=== PATIENT | female | born 1945 | race Caucasian/White ===

== ENCOUNTER 2016-10-31 20:40 | Inpatient (IN) | payer MEDICARE, OTHER ==
[~2016-10-31] VITALS: Ht 157.5 cm; Wt 54.8 kg
[2016-10-31] MEDS ORDERED: SODIUM CHLORIDE 0.9% 1,000 ML IV ONE ×2 (22:55→23:15)
[2016-10-31] MEDS ORDERED: methylPREDNISolone SOD SUCC 125 MG/2 ML VL IV ONE (23:00)
[2016-10-31] MEDS ORDERED: ALBUTEROL SULF 2.5 MG/0.5ML(0.5%) NEB SOLN NEB ONE (23:00)
[2016-10-31] MEDS ORDERED: IPRATROPIUM BROM 0.5 MG/2.5ML INH SOL NEB ONE (23:00)
[2016-10-31 23:28] LABS: Basophils # (auto) 0.2 uL; Basophils % (auto) 1.7 % (0.0-2.0); DEFINITIVE VIEW TRANSMISSION; Eosinophils # (auto) 0 uL; Eosinophils % (auto) 0.2 % (0.0-7.0); Hematocrit 41.1 % (36.0-46.0); Hemoglobin 12.9 g/dL (12.2-16.2); Lymphocytes # (auto) 0.4 uL; Lymphocytes % (auto) 3.5 % (10.0-50.0); Mean Corpuscular Hemoglobin 32.4 pg (28.0-32.0); Mean Corpuscular Hgb Conc. 31.5 g/dL (32.0-36.0); Mean Corpuscular Volume 102.9 fL (80.0-100.0); Mean Platelet Volume 7.5 fL (7.4-10.4); Monocytes # (auto) 0.6 uL; Monocytes % (auto) 5.3 % (0.0-12.0); Neutrophils # (auto) 9.7 uL; Neutrophils % (auto) 89.3 % (37.0-80.0); Platelet Count (auto) 140 10^3/uL (140-450); SUSPECT VIEW TRANSMISSION; White Blood Cell 10.9 10^3/uL (4.4-10.8)
[2016-10-31 23:32] LABS: INR 0.95 (0.9-1.15); Prothrombin Time 9.8 sec (9.37-12.3)
[2016-10-31 23:38] LABS: Albumin 2.6 g/dL (3.4-5.0); BUN/Creatinine Ratio 38.4; Calcium 8.3 mg/dL (8.5-10.1); Potassium 4.3 mmol/L (3.5-5.1)
[2016-10-31 23:40] LABS: Bilirubin, Total 0.5 mg/dL (0.2-1.0); Total Protein 5.7 g/dL (6.4-8.2)
[2016-10-31 23:47] LABS: B-Type Natriuretic Peptide 126.99 pg/mL (0-100); Temperature: 22.9 C (20.0-25.0)
[2016-11-01] MEDS ORDERED: PIPERACILLIN-TAZOB 3.375GM 100 ML IV ONE (00:45)
[2016-11-01] MEDS ORDERED: ONDANSETRON HCL 4 MG/2 ML VIAL IV PRN (03:45)
[2016-11-01] MEDS ORDERED: FUROSEMIDE 20 MG/2 ML VIAL IV ONE (03:45)
[2016-11-01] MEDS ORDERED: ACETAMINOPHEN 325 MG TAB PO PRN (03:45)
[2016-11-01] MEDS ORDERED: FUROSEMIDE 20 MG/2 ML VIAL ONE (04:13)
[2016-11-01 05:49] VITALS: BP 143/77
[2016-11-01 06:30] VITALS: BP 143/77
[2016-11-01 07:49] VITALS: BP 129/73
[2016-11-01] MEDS ORDERED: FUROSEMIDE 20 MG TAB PO SCH (10:00)
[2016-11-01] MEDS ORDERED: ENOXAPARIN SOD 40 MG/0.4 ML SYRINGE SC SCH (10:00)
[2016-11-01] MEDS: ENOXAPARIN SOD 30 MG/0.3 ML SYRINGE SC SCH (10:02)
[2016-11-01] MEDS: HYDROcodone-ACET 5/325MG TAB PO PRN ×3 (10:02→22:07)
[2016-11-01] MEDS: FAMOTIDINE 20 MG TAB PO SCH ×2 (10:03→22:08)
[2016-11-01] MEDS: CARVEDILOL 3.125 MG TAB PO SCH ×2 (10:05→22:08)
[2016-11-01] MEDS ORDERED: IOHEXOL 350 MG/ML 100ML IJ ONE (15:15)
[2016-11-01 16:47] VITALS: BP 144/75
[2016-11-01] MEDS ORDERED: FUROSEMIDE 20 MG/2 ML VIAL IV SCH (18:00)
[2016-11-01 20:53] VITALS: BP 169/90
[2016-11-01] MEDS ORDERED: predniSONE 5 MG TAB PO SCH (22:00)
[2016-11-02 05:01] VITALS: BP 143/71
[2016-11-02 06:18] LABS: Basophils # (auto) 0 uL; Basophils % (auto) 0.1 % (0.0-2.0); DEFINITIVE VIEW TRANSMISSION; Eosinophils # (auto) 0 uL; Eosinophils % (auto) 0.1 % (0.0-7.0); Hematocrit 35.7 % (36.0-46.0); Hemoglobin 11.1 g/dL (12.2-16.2); Lymphocytes # (auto) 0.4 uL; Lymphocytes % (auto) 4.8 % (10.0-50.0); Mean Corpuscular Hemoglobin 31.7 pg (28.0-32.0); Mean Corpuscular Hgb Conc. 31.1 g/dL (32.0-36.0); Mean Platelet Volume 7.8 fL (7.4-10.4); Monocytes % (auto) 11.7 % (0.0-12.0); Neutrophils % (auto) 83.3 % (37.0-80.0); Platelet Count (auto) 161 10^3/uL (140-450); Red Cell Distribution Width 17.5 % (11.6-16.0); White Blood Cell 8.4 10^3/uL (4.4-10.8)
[2016-11-02 06:53] LABS: Albumin 2.3 g/dL (3.4-5.0); BUN/Creatinine Ratio 56.3; Bilirubin, Total 0.5 mg/dL (0.2-1.0); Potassium 3.8 mmol/L (3.5-5.1); Total Protein 4.9 g/dL (6.4-8.2)
[2016-11-02] MEDS: HYDROcodone-ACET 5/325MG TAB PO PRN (07:57)
[2016-11-02 08:00] VITALS: BP 157/91
[2016-11-02 09:00] VITALS: BP 157/91
[2016-11-02] MEDS: IPRATROPIUM BROM 0.5 MG/2.5ML INH SOL NEB PRN ×2 (09:09→13:40)
[2016-11-02] MEDS: ALBUTEROL SULF 2.5 MG/0.5ML(0.5%) NEB SOLN NEB PRN ×2 (09:09→13:40)
[2016-11-02] MEDS ORDERED: ASPI81TA27 PO (10:36)
[2016-11-02] MEDS ORDERED: DILT240C71 PO (10:36)
[2016-11-02] MEDS ORDERED: HYDR-531 PO (10:36)
[2016-11-02] MEDS ORDERED: DIGO0.1262 PO (10:36)
[2016-11-02] MEDS ORDERED: POTA10SO11 GT (10:36)
[2016-11-02] MEDS ORDERED: PRE5T GT (10:36)
[2016-11-02] MEDS ORDERED: MAGN400T23 PO (10:36)
[2016-11-02] MEDS ORDERED: ATOR40TA52 PO (10:36)
[2016-11-02] MEDS ORDERED: OXY10CRT PO (10:36)
[2016-11-02] MEDS ORDERED: BUME2TAB3 PO (11:11)
[2016-11-02] MEDS ORDERED: PANT1INJ3 IV (11:11)
[2016-11-02] MEDS ORDERED: IPRA0.03 (11:11)
[2016-11-02] MEDS ORDERED: ROFL1TAB2 PO (11:11)
[2016-11-02] MEDS ORDERED: ESCI10TA PO (11:11)
[2016-11-02] MEDS ORDERED: BUDE0.5S NEB (11:11)
[2016-11-02 13:14] VITALS: BP 162/85
[2016-11-02] MEDS ORDERED: CLOPIDOGREL BISULFATE 75 MG TAB PO ONE (13:15)
[2016-11-02] MEDS ORDERED: methylPREDNISolone SOD SUCC 40 MG/ML VL IV ONE (13:15)
[2016-11-02] MEDS ORDERED: ASPirin 81 mg TAB PO ONE (13:15)
[2016-11-02] MEDS ORDERED: DILTIAZEM HCL 120MG ER CAP PO ONE (13:30)
[2016-11-02] MEDS ORDERED: POTASSIUM CHL 20 Meq TABLET PO ONE (13:30)
[2016-11-02] MEDS ORDERED: DIGOXIN 0.125 MG TAB PO ONE (13:30)
[2016-11-02] MEDS: oxyCODONE ER 10 MG TAB PO SCH ×2 (13:38→21:32)
[2016-11-02] MEDS: FAMOTIDINE 20 MG TAB PO SCH ×2 (13:38→21:33)
[2016-11-02] MEDS: FUROSEMIDE 40 MG/4 ML VIAL IV SCH (13:39)
[2016-11-02] MEDS: ENOXAPARIN SOD 30 MG/0.3 ML SYRINGE SC SCH (13:41)
[2016-11-02 16:55] VITALS: BP 148/83
[2016-11-02] MEDS ORDERED: METOPROLOL TARTRATE 1MG/1ML-5ML VIAL IV ONE (18:30)
[2016-11-02] MEDS ORDERED: METOPROLOL TARTRATE 25 MG TAB PO ONE (18:30)
[2016-11-02 21:05] VITALS: BP 126/72
[2016-11-02] MEDS: METOPROLOL TARTRATE 25 MG TAB PO SCH (21:33)
[2016-11-02] MEDS ORDERED: ATORVASTATIN 20 MG TAB PO SCH (22:00)
[2016-11-03 05:27] VITALS: BP 142/75
[2016-11-03 06:42] LABS: Potassium 4.2 mmol/L (3.5-5.1)
[2016-11-03 07:04] LABS: BUN/Creatinine Ratio 48.4; Calcium 8.1 mg/dL (8.5-10.1)
[2016-11-03 08:05] VITALS: BP 135/73
[2016-11-03] MEDS: HYDROcodone-ACET 5/325MG TAB PO PRN (08:50)
[2016-11-03 08:54] VITALS: BP 135/73
[2016-11-03] MEDS ORDERED: DILTIAZEM HCL 120MG ER CAP PO SCH (10:00)
[2016-11-03] MEDS ORDERED: DIGOXIN 0.125 MG TAB PO SCH (10:00)
[2016-11-03] MEDS ORDERED: POTASSIUM CHL 20 Meq TABLET PO SCH (10:00)
[2016-11-03] MEDS ORDERED: PRO-STAT 64 30ML GT SCH (10:00)
[2016-11-03] MEDS ORDERED: methylPREDNISolone SOD SUCC 40 MG/ML VL IV SCH (10:00)
[2016-11-03] MEDS ORDERED: ASPirin 81 mg TAB PO SCH (10:00)
[2016-11-03] MEDS ORDERED: BOOST PLUS 8 ounce PO SCH (10:00)
[2016-11-03] MEDS ORDERED: CLOPIDOGREL BISULFATE 75 MG TAB PO SCH (10:00)
[2016-11-03] MEDS: ENOXAPARIN SOD 30 MG/0.3 ML SYRINGE SC SCH (10:33)
[2016-11-03] MEDS: FAMOTIDINE 20 MG TAB PO SCH (10:35)
[2016-11-03] MEDS: METOPROLOL TARTRATE 25 MG TAB PO SCH (10:36)
[2016-11-03] MEDS: oxyCODONE ER 10 MG TAB PO SCH (10:36)
[2016-11-03] MEDS: FUROSEMIDE 40 MG/4 ML VIAL IV SCH (10:37)
[2016-11-03] MEDS: ALBUTEROL SULF 2.5 MG/0.5ML(0.5%) NEB SOLN NEB PRN (11:01)
[2016-11-03] MEDS: IPRATROPIUM BROM 0.5 MG/2.5ML INH SOL NEB PRN (11:01)
[2016-11-03 15:37] VITALS: BP 135/73
== END 2016-11-03 16:10 | disposition home or self-care (01) | DRG 194 ==
LOC: EDBD 20:40 → ER 20:52 → WEST WING 20:53 → TELE-WESTW 11-01 19:18
PROVIDERS: ADMIT Nurse Practitioner; ATTEND Internal Medicine
DX: I50.33 Acute on chronic diastolic (congestive) heart failure (principal); J96.21 Acute and chronic respiratory failure with hypoxia; E43 Unspecified severe protein-calorie malnutrition; I48.0 Paroxysmal atrial fibrillation; Z99.81 Dependence on supplemental oxygen; J44.1 Chronic obstructive pulmonary disease with (acute) exacerbation; R64 Cachexia; F20.0 Paranoid schizophrenia; G89.4 Chronic pain syndrome; E78.5 Hyperlipidemia, unspecified; I11.0 Hypertensive heart disease with heart failure; D72.829 Elevated white blood cell count, unspecified; R53.1 Weakness; Z87.891 Personal history of nicotine dependence; Z91.19 Patient's noncompliance with other medical treatment and regimen; Z90.49 Acquired absence of other specified parts of digestive tract; Z68.22 Body mass index [BMI] 22.0-22.9, adult; Z79.82 Long term (current) use of aspirin; Z79.899 Other long term (current) drug therapy
CPT/HCPCS: 36415; 71010; 71275; 76705; 80048; 80053; 80061; 80162; 83735; 83880; 84484; 85025; 85379; 85610; 85730; 87040; 87081; 93005; 93306; 93970; 94640; 96361; 96365; 96366; 96375; 97001; J2543

== ENCOUNTER 2016-11-06 20:43 | Inpatient (IN) | payer MEDICARE, OTHER ==
[~2016-11-06] VITALS: Ht 149.9 cm; Wt 76.0 kg
[~2016-11-06 20:43] MED LIST: ASPI81TA27 PO; ATOR40TA52 PO; BUDE0.5S NEB; BUME2TAB3 PO; DIGO0.1262 PO; DILT240C71 PO; ESCI10TA PO; HYDR-531 PO; IPRA0.03; MAGN400T23 PO; OXY10CRT PO; PANT1INJ3 IV; POTA10SO11 GT; PRE5T GT; ROFL1TAB2 PO
[2016-11-06] MEDS ORDERED: methylPREDNISolone SOD SUCC 125 MG/2 ML VL IV ONE (21:00)
[2016-11-06] MEDS ORDERED: ALBUTEROL SULF 2.5 MG/0.5ML(0.5%) NEB SOLN NEB ONE (21:00)
[2016-11-06] MEDS ORDERED: IPRATROPIUM BROM 0.5 MG/2.5ML INH SOL NEB ONE (21:00)
[2016-11-06 21:29] LABS: Basophils # (auto) 0 uL; Eosinophils # (auto) 0 uL; Eosinophils % (auto) 0.4 % (0.0-7.0); Hematocrit 35.8 % (36.0-46.0); Hemoglobin 11.8 g/dL (12.2-16.2); Lymphocytes # (auto) 0.4 uL; Lymphocytes % (auto) 4.1 % (10.0-50.0); Mean Corpuscular Hemoglobin 33.3 pg (28.0-32.0); Mean Corpuscular Hgb Conc. 32.8 g/dL (32.0-36.0); Mean Corpuscular Volume 101.5 fL (80.0-100.0); Mean Platelet Volume 7.2 fL (7.4-10.4); Monocytes # (auto) 0.9 uL; Monocytes % (auto) 8.7 % (0.0-12.0); Neutrophils # (auto) 8.5 uL; Neutrophils % (auto) 86.8 % (37.0-80.0); Platelet Count (auto) 261 10^3/uL (140-450); Red Cell Distribution Width 18.4 % (11.6-16.0); SUSPECT VIEW TRANSMISSION; White Blood Cell 9.8 10^3/uL (4.4-10.8)
[2016-11-06 21:53] LABS: Albumin 2.8 g/dL (3.4-5.0); Magnesium 2.5 mg/dL (1.6-2.6); Potassium 4.7 mmol/L (3.5-5.1)
[2016-11-06 21:58] LABS: Bilirubin, Total 0.4 mg/dL (0.2-1.0); Total Protein 5.9 g/dL (6.4-8.2)
[2016-11-06 21:59] LABS: B-Type Natriuretic Peptide 83.92 pg/mL (0-100)
[2016-11-06 22:07] LABS: Temperature: 22.2 C (20.0-25.0)
[2016-11-07] VITALS (8 sets, daily range): BP systolic 120–161; BP diastolic 58–79
[2016-11-07 00:28] LABS: Urine Bilirubin Negative (Negative); Urine Blood Negative /uL (Negative); Urine Color Yellow (Yellow); Urine Glucose Normal (Normal); Urine Ketone Negative (Negative); Urine Nitrite Negative (Negative); Urine RBC <1 /hpf (0 - 4); Urine Squamous Epithelial Cell FEW /hpf (<5); Urine Urobilinogen Normal (Negative)
[2016-11-07] MEDS ORDERED: ALBUTEROL SULF 2.5 MG/0.5ML(0.5%) NEB SOLN NEB PRN (02:45)
[2016-11-07] MEDS ORDERED: TEMAZEPAM 15 MG CAP PO PRN (02:45)
[2016-11-07] MEDS ORDERED: ACETAMINOPHEN 325 MG TAB PO PRN (02:45)
[2016-11-07] MEDS ORDERED: ONDANSETRON HCL 4 MG/2 ML VIAL IV PRN (02:45)
[2016-11-07] MEDS ORDERED: oxyCODONE ER 10 MG TAB PO ONE (02:45)
[2016-11-07] MEDS: FAMOTIDINE 20 MG TAB PO SCH ×2 (09:48→22:01)
[2016-11-07] MEDS: oxyCODONE ER 10 MG TAB PO SCH ×2 (09:48→22:01)
[2016-11-07] MEDS: ENOXAPARIN SOD 40 MG/0.4 ML SYRINGE SC SCH (09:50)
[2016-11-07] MEDS: DIGOXIN 0.125 MG TAB PO SCH (09:50)
[2016-11-07] MEDS: DILTIAZEM HCL 120MG ER CAP PO SCH (09:50)
[2016-11-07] MEDS ORDERED: methylPREDNISolone SOD SUCC 125 MG/2 ML VL IV SCH (10:00)
[2016-11-07] MEDS: BUDESONIDE (INHALATION) 0.5 MG/2 ML NEB NEB SCH ×2 (10:06→19:17)
[2016-11-07] MEDS: IPRATROPIUM BROM 0.5 MG/2.5ML INH SOL NEB PRN (12:13)
[2016-11-07] MEDS ORDERED: LORazepam 2MG/ML-1ML VIAL IV ONE (12:15)
[2016-11-07] MEDS: ALBUTEROL SULF 2.5 MG/0.5ML(0.5%) NEB SOLN NEB SCH (19:16)
[2016-11-07] MEDS: IPRATROPIUM BROM 0.5 MG/2.5ML INH SOL NEB SCH (19:17)
[2016-11-07] MEDS: ATORVASTATIN 20 MG TAB PO SCH (22:01)
[2016-11-07] MEDS: CELECOXIB 100 MG CAP PO SCH (22:01)
[2016-11-08 06:00] VITALS: BP 134/60
[2016-11-08] MEDS: IPRATROPIUM BROM 0.5 MG/2.5ML INH SOL NEB SCH ×4 (06:11→23:14)
[2016-11-08] MEDS: ALBUTEROL SULF 2.5 MG/0.5ML(0.5%) NEB SOLN NEB SCH ×4 (06:11→18:54)
[2016-11-08 06:30] LABS: Basophils # (auto) 0 uL; Eosinophils # (auto) 0 uL; Hemoglobin 11.5 g/dL (12.2-16.2); Lymphocytes # (auto) 0.4 uL; Lymphocytes % (auto) 3.2 % (10.0-50.0); Mean Corpuscular Hemoglobin 33.2 pg (28.0-32.0); Mean Corpuscular Hgb Conc. 32.8 g/dL (32.0-36.0); Mean Corpuscular Volume 101.3 fL (80.0-100.0); Mean Platelet Volume 7.4 fL (7.4-10.4); Monocytes % (auto) 7.6 % (0.0-12.0); Neutrophils # (auto) 12.3 uL; Neutrophils % (auto) 89.2 % (37.0-80.0); Platelet Count (auto) 286 10^3/uL (140-450); Red Cell Distribution Width 17.8 % (11.6-16.0); White Blood Cell 13.8 10^3/uL (4.4-10.8)
[2016-11-08 07:07] LABS: Albumin 2.4 g/dL (3.4-5.0); BUN/Creatinine Ratio 42.7; Bilirubin, Total 0.3 mg/dL (0.2-1.0); Calcium 8.2 mg/dL (8.5-10.1); Potassium 3.8 mmol/L (3.5-5.1); Total Protein 5.2 g/dL (6.4-8.2)
[2016-11-08 08:53] VITALS: BP 116/42
[2016-11-08] MEDS: FAMOTIDINE 20 MG TAB PO SCH ×2 (09:35→21:27)
[2016-11-08] MEDS: DILTIAZEM HCL 120MG ER CAP PO SCH (09:35)
[2016-11-08] MEDS: CELECOXIB 100 MG CAP PO SCH ×2 (09:35→21:27)
[2016-11-08] MEDS: oxyCODONE ER 10 MG TAB PO SCH ×2 (09:35→21:28)
[2016-11-08] MEDS: DIGOXIN 0.125 MG TAB PO SCH (09:36)
[2016-11-08] MEDS: ENOXAPARIN SOD 40 MG/0.4 ML SYRINGE SC SCH (09:36)
[2016-11-08] MEDS: BUDESONIDE (INHALATION) 0.5 MG/2 ML NEB NEB SCH ×2 (10:00→18:54)
[2016-11-08 13:00] VITALS: BP 142/71
[2016-11-08 16:48] VITALS: BP 127/60
[2016-11-08] MEDS: ATORVASTATIN 20 MG TAB PO SCH (21:27)
[2016-11-08 22:26] VITALS: BP 135/71
[2016-11-09 05:27] VITALS: BP 139/78
[2016-11-09] MEDS: ALBUTEROL SULF 2.5 MG/0.5ML(0.5%) NEB SOLN NEB SCH ×2 (06:21→10:18)
[2016-11-09] MEDS: IPRATROPIUM BROM 0.5 MG/2.5ML INH SOL NEB SCH (06:21)
[2016-11-09 07:49] VITALS: BP 130/75
[2016-11-09] MEDS: ENOXAPARIN SOD 40 MG/0.4 ML SYRINGE SC SCH (10:00)
[2016-11-09] MEDS: oxyCODONE ER 10 MG TAB PO SCH (10:04)
[2016-11-09] MEDS: DIGOXIN 0.125 MG TAB PO SCH (10:04)
[2016-11-09] MEDS: FAMOTIDINE 20 MG TAB PO SCH (10:04)
[2016-11-09] MEDS: CELECOXIB 100 MG CAP PO SCH (10:05)
[2016-11-09] MEDS: DILTIAZEM HCL 120MG ER CAP PO SCH (10:05)
[2016-11-09] MEDS: IPRATROPIUM BROM 0.5 MG/2.5ML INH SOL NEB PRN (10:19)
[2016-11-09] MEDS: BUDESONIDE (INHALATION) 0.5 MG/2 ML NEB NEB SCH (10:19)
[2016-11-09 11:50] VITALS: BP 147/73
[2016-11-09 11:59] VITALS: BP 131/76
== END 2016-11-09 13:49 | disposition home or self-care (01) | DRG 140 ==
LOC: EDBD 20:43 → ER 20:47 → OVERFLOW 20:48 → EAST 11-07 04:20 → TELE-EAST 11-07 20:10
PROVIDERS: ADMIT Nurse Practitioner; ATTEND Internal Medicine Pulmonary Disease
PROC: 5A09357 Assistance with Respiratory Ventilation, Less than 24 Consecutive Hours, Continuous Positive Airway Pressure (ICD-10-PCS; principal; 2016-11-07)
DX: J44.1 Chronic obstructive pulmonary disease with (acute) exacerbation (principal); J96.20 Acute and chronic respiratory failure, unspecified whether with hypoxia or hypercapnia; E43 Unspecified severe protein-calorie malnutrition; F11.20 Opioid dependence, uncomplicated; I11.0 Hypertensive heart disease with heart failure; I50.9 Heart failure, unspecified; R07.9 Chest pain, unspecified; Z79.82 Long term (current) use of aspirin; Z79.899 Other long term (current) drug therapy; Z90.49 Acquired absence of other specified parts of digestive tract; Z68.33 Body mass index [BMI] 33.0-33.9, adult
CPT/HCPCS: 36415; 36600; 71010; 71020; 71101; 80053; 80162; 81001; 82805; 83735; 83880; 84484; 85025; 87081; 93005; 94640; 96374